=== PATIENT | female | born 1940 | race Caucasian/White ===

== ENCOUNTER 2016-06-16 10:57 | Inpatient (IN) | payer MEDICARE, OTHER ==
[~2016-06-16] VITALS: Ht 175.3 cm; Wt 71.3 kg
[2016-06-16] VITALS (16 sets, daily range): BP systolic 100–133; BP diastolic 54–77; PULSE 60–70; RESP 10–18; O2SAT 98–100
[~2016-06-16 10:57] MED LIST: BUTA1CAP45 PO; Bupivacaine Liposome 1.3% 20 mL Inj NERVEBLOCK ONE; CALC-140 PO; CHOL10008 PO; CeFAZolin Inj 2 GM in IV Premix 1 EACH IV ONE; LEVO150T5 PO; Lactated Ringer's 1,000 ML IV SCH; Vancomycin Inj 1,000 MG in IV Premix 1 EACH IV ONE; flaxseed oil
[2016-06-16] MEDS ORDERED: CeFAZolin Inj 2 gm / 50mL D5W IV ONE (12:07)
[2016-06-16] MEDS ORDERED: Vancomycin 1,000mg/200 mL NS IV ONE (12:07)
[2016-06-16] MEDS ORDERED: Tranexamic Acid 100 mg/mL 10 mL Inj IV ONE (14:20)
[2016-06-16] MEDS ORDERED: Bupivacaine Liposome 1.3% 20 mL Inj ONE (15:50)
[2016-06-16] MEDS ORDERED: 0.9% Sodium Chloride 100 ML ONE (16:00)
[2016-06-16] MEDS ORDERED: Lactated Ringer's 1,000 ML IV ONE ×2 (16:15→18:01)
[2016-06-16] MEDS ORDERED: Tranexamic Acid 100 mg/mL 10 mL Inj TOPICAL ONE (16:35)
[2016-06-16] MEDS ORDERED: Lactated Ringer's 1,000 ML IV SCH (16:54)
[2016-06-16] MEDS ORDERED: Lactated Ringer's 500 ML IV PRN (16:54)
[2016-06-16] MEDS ORDERED: fentaNYL-PF 50 mCg/mL 2 mL Inj IVPUSH PRN (16:55)
[2016-06-16] MEDS ORDERED: Phenylephrine 10,000 mCg/mL Inj IVPUSH PRN (16:55)
[2016-06-16] MEDS ORDERED: MetoCLOpramide 5 mg/mL 2 mL Inj IVPUSH PRN ×2 (16:55→21:45)
[2016-06-16] MEDS ORDERED: HYDROmorphone 1 mg/mL Inj IVPUSH PRN (16:55)
[2016-06-16] MEDS ORDERED: Ondansetron 2 mg/mL 2 mL Inj IVPUSH PRN ×2 (16:55→21:45)
[2016-06-16] MEDS ORDERED: Dexamethasone 4 mg/mL Inj IVPUSH PRN (16:55)
[2016-06-16] MEDS ORDERED: EPHEDrine Sulfate 50 mg/mL Inj IVPUSH PRN (16:55)
[2016-06-16] MEDS ORDERED: Gentamicin 40 mg/mL 2 mL Inj IRRIGATION ONE (16:55)
--- NOTE | 2016-06-16 16:55 | PCM.HPANE ---
Patient Data Surgeon Admitting Provider: Attending Provider:Alber Hernandez MD Primary Care Physician:Gennaro Viveros MD Other Provider:Danielle Simsingham Anesthesia Reason for Visit Left Knee Arthritis Ht/WT & BMI Height (Feet): 5 Height (Inches): 9 Weight (Kilograms): 68.31 Body Mass Index 22.00 Allergies Coded Allergies: No Known Allergies (Unverified , 06/14/16) Past Anesthesia History Anesthesia History: Denies:: Abnormal Airway, Anesthesia Reactions, Difficult Intubation, Fam Anesthesia Reaction (father "made him kind of crazy") Diabetes History Hx Diabetes?: No MRSA MRSA: No Medications Hypertension Medication: No Home Meds Incl Beta Patel: No Reported Medications Cholecalciferol (Vitamin D3) (Vitamin D3)1,000 Unit Tab.chew1,000 Unit PO DAILY 06/14/16 [flaxseed oil] No Conflict CheckUnknown Dose DAILY 06/14/16 Levothyroxine 150 Mcg [id number] Mcg PO DAILY Ref 0 06/14/16 Butalbital/Acetamin/Caff 50-325-40 mg (Esgic 50-325-40 mg)1 Each Capsule1-2 Capsule PO Q4H PRN migraines Ref 0 not to exceed 6caps/24hrs 06/14/16 Calcium Carbonate/Vitamin D3 (Calcium + Vitamin D Tablet)1 Each Tablet1 Each PO DAILY 06/14/16 History HEENT History: Denies:: Abnormal Airway Cataracts Difficult Intubation Dysphagia Glaucoma Hearing Problem Sinus Problem TMJ Cardiovascular History: Denies:: AICD Abdominal Aortic Aneurism Atrial Fibrillation Cardiac Surgery Chest Pain Congestive Heart Failure Coronary Artery Disease Edema Heart Murmur Hypertension Irregular Heartbeat Pacemaker Peripheral Vascular Rheumatic Fever Thrombophlebitis Valvular Heart Disease Hx of Respiratory Problem?: No Respiratory History: Denies:: Asthma COPD Emphysema Oxygen Administration Pneumonia Tuberculosis Use of C-PAP Machine Use of Inhalers / NEBS Hx Neurologic Problems?: Yes Neurological History: Positive for:: Headaches Denies:: CVA Multiple Sclerosis Parkinson's Disease Seizures TIA Gastrointestinal History: Denies:: Cirrhosis Gall Bladder Disease Gastroesphageal Reflux Heartburn Hiatal Hernia Liver Disease Hx of Problems?: No Genitourinary History: Denies:: Kidney Stones Urinary Tract Infection Female Hx: Denies:: Currently (hysterectomy) Problems with Breasts? Skin History: Denies:: History Skin Disorders? Pressure Ulcers Hx Musculoskeletal Problems?: Yes Musculoskeletal History: Positive for:: Degenerative Joint Musculoskeletal Trauma (left knee current admission problem) Osteoarthritis Denies:: Back Injury Fibromyalgia Joint Replacement Myasthenia Gravis Hx of Psycho/Social Problems?: No Psycho Social History: Denies:: Anxiety Hx Depression Hx Surgeries?: Yes (hysterectomy) Hx Any Other Health Problems?: Yes Other History: Positive for:: Thyroid Disease Denies:: Cancer History Blood Transfusions: Positive for:: Accept Blood Products? Denies:: Blood Transfusions Hx Diabetes: No Hx Alcohol Use: NoHx Substance Use: NoHave You Smoked inLast 12 mo: No Stop/Bang S-Snoring: Do You Snore Loudly: No T-Tired: feel tired, fatigued: Yes O-Obsered: Observed not breath: No P-Blood Pressure: treated: No B- Body Mass Index > 35 kg/m2: No A- Age over 50: Yes N- Neck Large Circumference: No G- Gender Male: No NADINE Total Score: 2 Risk Assessment Category Category 1A: Patient has history of documented sleep apnea, and HAS NOT received any narcotic, sedative or anesthesia administration during this stay. Category 1B: Patient has history of documented sleep apnea, and HAS received any narcotic , sedative or anesthesia administration during this stay Category 2: Patient has SUSPECTED Obstructive Sleep Apnea, and HAS received any narcotic , sedative or anesthesia administration during this stay. Category 3: Patient has SUSPECTED Obstructive Sleep Apnea and HAS NOT received narcotic, sedative or anesthesia administration during this stay. Category 4: Outpatient in Procedural Areas with known sleep apnea or who screen positive for High Risk via the STOP/BANG questionnaire. Exam Exam General Appearance: Alert, Oriented X3, Cooperative, No Acute Distress HEENT/AIRWAY: MP 2 Lungs: Clear to Auscultation Heart: Exam Unremarkable Plan Impression Patient chart reviewed, patient interviewed and anesthestic plan with risks, benefits, and alternatives discussed, and informed consent obtained. ASA Physical Status: ASA2 Mod Systemic Disease Anesthetic Plan: Regional Block (adductor canal), SAB Bene/Risks/Altern/Consents: Yes HP Complete Prior to Induction: Yes Salvador Graham MD Jun 16, 2016 08:59
[2016-06-16] MEDS ORDERED: Bupivacaine-MPF 0.25%/EPI 30 mL Inj INFILTRATE ONE (18:08)
[2016-06-16] MEDS ORDERED: Bupivacaine Liposome 1.3% 20 mL Inj INFILTRATE ONE (18:08)
--- NOTE | 2016-06-16 18:43 | PCM.ANEP1 ---
Post Anesthesia Phase 1 PACU Phase 1 Assessment Vital Signs Vital Signs Date Time Temp Pulse Resp B/P Pulse Ox O2 Delivery O2 Flow Rate FiO2 06/16/16 11:40 36.5 70 18 123/65 98 Room Air Anesthetic Administered: Regional Block, SAB Level of Alertness: Awake, talking HOLLY's with Equal Strength: No (spinal) Pain: No Nausea or Vomiting: No (d) Oxygen Delivery: Room Air Lungs: Clear to Auscultation Salvador Graham MD Jun 16, 2016 18:43
--- NOTE | 2016-06-16 18:50 | PCM.ANEP2 ---
Post Anesthesia Evaluation ASA/CMS Post Anesthesia VS in Patient's Normal Range?: Yes Resp Stable; Airway Patent?: Yes CV Function & Hydration Stable: Yes Mental Status Recovered?: Yes Pain control Satisfactory?: Yes N/V Control Satisfactory?: Yes Salvador Graham MD Jun 16, 2016 18:50
[2016-06-16 19:04] LABS: APPEARANCE,URINE HAZY (CLEAR,HAZY); COLOR,URINE YELLOW (YELLOW); OCCULT BLOOD,URINE TRACE (NEGATIVE); PH,URINE 5.5 (5.0-8.0); UROBILINOGEN,URINE NORMAL (NORMAL)
--- NOTE | 2016-06-16 19:52 | DRSVH ---
PROCEDURE: X-RAY LEFT KNEE, ONE OR TWO VIEWS ([id number]) INDICATIONS: POST TOTAL KNEE TECHNIQUE: 2 view(s) of the knee acquired. COMPARISON: [facility], CR, XR KNEE BILATERAL STANDING UP, 05/11/2016, 14:47. FINDINGS: Bones: Patient is status post knee joint arthroplasty. Hardware components are in expected position s. Visualized bony structures are intact. Soft tissues: Overlying postoperative changes are noted. IMPRESSION: Expected postsurgical change for total left knee arthroplasty. Dictated by: Susana Lee MD, PhD on 06/16/2016 at 19:50 Approved by: Susana Lee MD, PhD on 06/16/2016 at 19:50
[2016-06-16] MEDS ORDERED: Bupiv-Spinal 0.75%/Dex 8.25% 2 mL Inj ONE (19:58)
[2016-06-16] MEDS ORDERED: Propofol 10,000 mCg/mL 20 mL Inj ONE (19:58)
[2016-06-16] MEDS ORDERED: fentaNYL-PF 50 mCg/mL 2 mL Inj ONE (19:58)
[2016-06-16] MEDS ORDERED: Phenylephrine/NS 100 mCg/mL 10 mL Syringe IVPUSH ONE (19:58)
[2016-06-16] MEDS ORDERED: Butalbital-Acet-Caffeine Tablet PO PRN (21:10)
[2016-06-16] MEDS ORDERED: diphenhydrAMINE 25 mg Capsule PO PRN (21:45)
[2016-06-16] MEDS ORDERED: Magnesium Hydroxide 10 mL Oral Concentration PO PRN (21:45)
[2016-06-16] MEDS ORDERED: Alum-Mag Hydrox-Simeth 30 mL Suspension PO PRN (22:05)
[2016-06-16] MEDS ORDERED: LORazepam 0.5 mg Tablet PO PRN (22:05)
[2016-06-16] MEDS ORDERED: hydrOXYzine Inj 25 MG/1 mL SDV IM PRN (22:10)
[2016-06-16] MEDS: HYDROcodone-APAP 5-325 mg Tablet PO PRN (22:16)
[2016-06-16] MEDS: CeFAZolin Inj 2 GM in Dextrose 5% 50 ML IV SCH (22:16)
[2016-06-16] MEDS: Lactated Ringer's 1,000 ML IV SCH (22:17)
[2016-06-16] MEDS ORDERED: Vancomycin Inj 1,000 MG in IV Premix 1 EACH IV ONE (22:30)
[2016-06-17 00:07] VITALS: BP 116/63; PULSE 58; RESP 16; O2SAT 98
[2016-06-17] MEDS: HYDROcodone-APAP 5-325 mg Tablet PO PRN ×4 (01:14→14:56)
--- NOTE | 2016-06-17 04:14 | OP ---
[address] [address] OPERATIVE REPORT PATIENT: INDY WANG : 1940 MR#: [id number] ADMIT: 06/16/2016 JOB ID: [id number] DATE OF SURGERY: 06/16/2016 PREOPERATIVE DIAGNOSIS(ES): Severe arthritis, left knee. POSTOPERATIVE DIAGNOSIS(ES): Severe arthritis, left knee. PROCEDURE: Total knee arthroplasty. SURGEON: Alber Hernandez MD. TIRE BAGGER: Penelope Burkett PA-C. Quilt Maker required due to the major complexity of operation. PROCEDURE: Left total knee replacement. INDICATIONS: This woman has had severe progressive osteoarthritis symptoms uncontrolled by conservative treatment techniques. She elects to proceed with a total knee arthroplasty. She understands and accepts the potential for risks and complications, which include, but are not limited to, infection, thromboembolic, neurovascular events, as well as potential for implant failure. Understanding these, she wishes to proceed. PROCEDURE: The patient was prepped and draped in usual sterile fashion. An anteromedial approach made. Patella subluxed laterally, cut transversely, sized to a 35. Patellar protection plate applied. Drill hole placed in the distal femur. A 5 degree valgus distal femoral cut was made. Sizing apparatus used. The femur was sized to a 9 chamfer cutting block, fixed in appropriate position and rotation. Drill holes and chamfer cuts were made. After trial reductions, later decision was made to reduce the size to an 8. An 8 chamfer cutting block was placed with a 1 mm down position taking additional millimeter off anteriorly and 1 posteriorly. Improved fit was obtained with this. The extramedullary guide was utilized to make a tibial cut. Standard cut was made. All bone fragments removed. All meniscal tissue and osteophytes were removed. This was sized to an E tibial component, fixed in appropriate position, rotation. Central drill, peg hole drilled, followed by punch with pressurized lavage, followed by pressurized cementation of the components. Trial reduction performed and excellent soft tissue tracking, full flexion with passive drop in full extension had been noted. Excess cement was removed during the curing process. Final construct assembled. Tourniquet was let down. Hemostasis achieved. Closed with a deep Hemovac drain with #2 Quill deep, 2-0 Vicryl, 3-0, and a 4-0 intracuticular stitch. Wounds had been lavaged with dilute Betadine solution prior to closure. Patient tolerated procedure well. There were no complications. She was taken to the recovery room in stable condition . Standard postoperative plan recommended.
[2016-06-17 05:00] VITALS: BP 103/64; PULSE 62; RESP 18; O2SAT 95
[2016-06-17 05:09] LABS: BASOPHILS % (AUTO) 0.1 % (0-3); EOSINOPHILS % (AUTO) 0 % (0-5); MONOCYTES % (AUTO) 8.1 % (4-12); Mean Corpuscular Hemoglobin 29.5 pg (27.0-35.0); Mean Corpuscular Volume 90.4 fL (81-100); NEUTROPHILS % (AUTO) 86.5 % (40-74); Platelet Count 265 bil/L (150-400)
--- NOTE | 2016-06-17 06:44 | PCM.PNORTH ---
Subjective Date of Service: Jun 17, 2016 Visit Information: Reason for Visit Left Knee Arthritis Surgery/Surgery Date Post-Op Day # Date of Admission: Jun 16, 2016 at 19:57 Hospital Day # Subjective Found patient awake and alert sitting up in bed. No complaints of pain at this time. Discussed discharge on postop day #3 and occurs participation with formal physical therapy. Answered questions for patient. On my arrival into the room I was informed by nursing that patient's Hemovac drain had become at the canister and I advised nurse to discontinue drain at this time secondary to breached system. Discussed icing and elevation with patient and encourage patient to keep the knee extended and to remove pillow from behind knee. Also advised patient she may vary her position as comfort allows precaution regarding maintaining a bent knee for extended periods of time. Postop General: No Complaints, No Shortness of Breath, No Chest Pain Pain Management: PO Objective Exam Objective Alert and oriented 3 and pleasant. Intraoperative dressings clean dry and intact. Calf and thigh are soft and nontender. Toe wiggle and sensation intact to left lower extremity distally. Hemovac drain in place. Hemovac drain became disconnected and system was breech just prior to my arrival. I asked nursing to remove the drain and place pressure dressing. Bassett in place and working and will be removed this morning. Vital Signs and I/O Vital Sign - Last Date Time Temp Pulse Resp B/P Pulse Ox O2 Delivery O2 Flow Rate FiO2 06/17/16 05:00 36.7 62 18 103/64 95 Room Air Intake and Output 06/16/16 06/16/16 06/17/16 Cumulative From/Thru 15:00 23:00 07:00 06/14/16 17:02 - 06/17/16 06:05 Intake Total 1550 ml 3200 ml 4750 ml Output Total 400 ml 5000 ml 5400 ml Balance 1150 ml -1800 ml -650 ml Intake Oral 3200 ml 3200 ml IV Total 1550 ml 1550 ml Output Urine Total 350 ml 5000 ml 5350 ml Estimated Blood Loss 50 ml 50 ml # Bowel Movements 0 0 Lab & Micro Results Laboratory Tests Test 06/16/16 18:36 06/17/16 04:50 Urine Color Yellow (YELLOW) Urine Appearance Hazy (CLEAR,HAZY) Urine pH 5.5 (5.0-8.0) Urine Specific [place] 1.030 (1.003-1.035) Urine Protein Negativemg/dL (NEG,TRACE) Urine Glucose (UA) Negativemg/dL (NEGATIVE) Urine Ketones 40mg/dL (NEGATIVE) Urine Occult Blood Trace (NEGATIVE) Urine Nitrite Negative (NEGATIVE) Urine Bilirubin Negative (NEGATIVE) Urine Urobilinogen Normalmg/dL (NORMAL) Urine Leukocyte Esterase Negative (NEGATIVE) Urine RBC 0-2/hpf (0-2) Urine WBC 0-5/hpf (0-5) Urine Epithelial Cells Few/hpf (NONE-MOD) Urine Crystals None seen (NONE SEEN) Urine Bacteria Few/hpf (NONE-FEW) Urine Hyaline Casts None/lpf (NONE) Urine Granular Casts None seen (NONE SEEN) Urine Waxy Casts None seen (NONE SEEN) Urine Red Blood Cell Casts None seen (NONE SEEN) Urine White Blood Cell Casts None seen (NONE SEEN) Urine Mucus Present (None Seen) Urine Trichomonas None seen (NONE SEEN) Urine Yeast None (NONE SEEN) Urinalysis Comment None Urine Culture Reflexed Not indicated White Blood Count 11.1th/mm3 (3.8-10.1) Red Blood Count 4.58mil/mm3 (3.90-5.20) Hemoglobin 13.5g/dL (12.0-15.6) Hematocrit 41.4% (35.0-46.0) Mean Corpuscular Volume 90.4fL (81-100) Mean Corpuscular Hemoglobin 29.5pg (27.0-35.0) Mean Corpuscular Hemoglobin Concent 32.6% (32.0-37.0) Red Cell Distribution Width 12.8% (12.3-15.4) Platelet Count 265bil/L (150-400) Neutrophils (%) (Auto) 86.5% (40-74) Lymphocytes (%) (Auto) 5.1% (14-46) Monocytes (%) (Auto) 8.1% (4-12) Eosinophils (%) (Auto) 0% (0-5) Basophils (%) (Auto) 0.1% (0-3) Result Diagram: 06/17/16 0450 General Appearance: Alert, Oriented X3, Cooperative, No Acute Distress Extremities: No Compartment Syndrom Noted, Thigh & Calf Soft/Nontender Postop Sensory Motor: Distal Motor Intact, Movement in Toes, Distal Sensation Intact SURGICAL WOUND : Drain Location Body Site: Knee Wound Drainage Type: Hemovac Activity: Activity per PT, Ambulate with PT (weightbearing as tolerated on the left lower extremity using front wheeled walker) Catheters: Urethral 2 Way Bassett (Bassett in place and working and will be removed this morning at 10:00.) Assessment & Plan Plan Postop day #1 from left total knee arthroplasty performed on 06/16/[address] Alber Hernandez. Weightbearing as tolerated on the left lower extremity using front wheeled walker. Continue formal physical therapy for mobility, gait and safety. Continue by mouth pain medication in the form of Percocet 5/325 and Vistaril as needed. Continue ASA 81 mg EC by mouth twice a day 6 weeks postop for DVT prophylaxis per conversation with Dr. Hernandez. Interoperative dressing is clean dry and intact and will be changed postop dressing on postop day #2 DC Hemovac drain immediately this morning secondary to drain this disconnected and system breeched. Bassett catheter in place and working. This will be discontinued at 10 AM this morning. Anticipate discharge to home on a before postop day #3. VTE Prophylaxis: Other (ASA 81 mg EC by mouth twice a day 6 weeks postop for DVT prophylaxis.) Gustavo Gonzalez PA-C Jun 17, 2016 06:44
[2016-06-17] MEDS: CeFAZolin Inj 2 GM in Dextrose 5% 50 ML IV SCH (06:46)
[2016-06-17 10:59] VITALS: BP 90/50; PULSE 70; RESP 18; O2SAT 94
[2016-06-17] MEDS: Lactated Ringer's 1,000 ML IV SCH (13:50)
[2016-06-17 14:20] VITALS: BP 112/64; PULSE 68; RESP 18; O2SAT 98
[2016-06-17] MEDS: hydrOXYzine Pamoate 25 mg Capsule PO PRN (14:56)
[2016-06-17] MEDS: oxyCODONE-Acetamin 5-325 mg Tablet PO PRN ×2 (18:04→22:54)
[2016-06-17 18:24] VITALS: BP 107/59; PULSE 70; RESP 18; O2SAT 97
[2016-06-17 19:24] VITALS: BP 95/59; PULSE 67; RESP 16; O2SAT 95
[2016-06-18] MEDS: oxyCODONE-Acetamin 5-325 mg Tablet PO PRN ×2 (02:03→10:46)
[2016-06-18] MEDS: hydrOXYzine Pamoate 25 mg Capsule PO PRN (05:23)
[2016-06-18 05:25] VITALS: BP 105/57; PULSE 65; RESP 16; O2SAT 91
[2016-06-18] MEDS: Lactated Ringer's 1,000 ML IV SCH (06:30)
--- NOTE | 2016-06-18 11:54 | PCM.PNORTH ---
Subjective Date of Service: Jun 18, 2016 Visit Information: Reason for Visit Left Knee Arthritis Surgery/Surgery Date left total knee arthroplasty Post-Op Day # 2 Date of Admission: Jun 16, 2016 at 19:57 Hospital Day # Subjective Patient feels that pain management has been difficult. She does not feel confident about going home today. She feels that she has significant difficulty with getting up to the bathroom. She is performing well with physical therapy and ambulated 150 feet this morning. She has not yet done stairs. Postop General: No Complaints, No Shortness of Breath, No Chest Pain Pain Management: PO Objective Exam Objective Patient is seen sitting up in bed Vital Signs and I/O Vital Sign - Last Date Time Temp Pulse Resp B/P Pulse Ox O2 Delivery O2 Flow Rate FiO2 06/18/16 10:53 Room Air 06/18/16 05:25 36.8 65 16 105/57 91 Intake and Output 06/17/16 06/17/16 06/18/16 Cumulative From/Thru 15:00 23:00 07:00 06/14/16 17:02 - 06/18/16 06:17 Intake Total 1024 ml 300 ml 6709 ml Output Total 2000 ml 500 ml 7905 ml Balance -976 ml -200 ml -1196 ml Intake Oral 360 ml 300 ml 3860 ml IV Total 664 ml 2849 ml Output Urine Total 2000 ml 500 ml 7850 ml Drainage Total 5 ml Estimated Blood Loss 50 ml # Bowel Movements 0 0 0 Result Diagram: 06/17/16 0450 General Appearance: Alert, Oriented X3, Cooperative, No Acute Distress Extremities: Distal Pulses Palpable, No Compartment Syndrom Noted, Thigh & Calf Soft/Nontender, Tenderness/Swelling Noted (at the surgical site, as expected) Postop Sensory Motor: Distal Motor Intact, NVI Distally SURGICAL WOUND : Wound Location/Description Surgical wound is clean dry and intact. Steri-Strips are in place. There is mild serous drainage on the Silverlon dressing. Dressing is removed. The wound is cleansed with hydrogen peroxide and an island dressing is applied. Activity: Activity per PT, Ambulate with PT Catheters: None Assessment & Plan Impression POD#2 left total knee arthroplasty Problems: Plan Weightbearing: Weightbearing as tolerated with walker DVT prophylaxis: aspirin 81 mg twice a day 6 weeks Physical therapy for transfers, progressive ambulation, therapeutic exercise. Patient ambulated 150 feet with PT this morning and minimal assist for BR She has bedside commode for home and FWW. Therapy will review stairs this afternoon with the patient. Wound care: Dressings changed today by PA Discharge plan: Discharge home today after PT. Start outpatient physical therapy next week Discharge instructions are reviewed with patient Follow-up plan: In 2 weeks at [facility] with PA for wound check and at [address] Hernandez with x-rays Pain Management: Percocet 5/325 mg, oxycodone, Vistaril, morphine VTE Prophylaxis: SCDs, Other (aspirin) [place] PA-C Jun 18, 2016 11:54
--- NOTE | 2016-06-18 12:27 | PCM.DIORTH ---
Ortho Discharge Instruction Date of Service: Jun 18, 2016 Dates of Hospitalization Date of Hospital Admission Jun 16, 2016 at 19:57 Providers Admitting Physician: Alber Hernandez MD Primary Care Physician: Gennaro Viveros MD Attending Physician: Alber Hernandez MD Diet Discharge Diet: No restrictions Activity Discharge Activity-General: Balance rest and activity, Elevate & ice extremity Left Lower Extremity: Weight Bearing as tolerated Range of motion restrictions: Work on bending and straightening the knee every day. It will be sore to bend, but push yourself to bend more every day Discharge Assist Device: Front Wheeled Walker Dressing and Incisional Care Discharge Dressing Care: Keep dressing clean, dry & intact Discharge Hygiene: May shower (see instruactions below), DO NOT soak incision under water, NO bathtub, hot tub or whirlpool Additional Instructions Discharge Instructions Weight bearing as tolerated with walker Increase your walking a little more each day. Get up and move every hour of the day and do some exercise for your knee. On Monday you may shower if there is no drainage present on the bandage. Wound may be uncovered to shower. Let soap and water run over the wound, pat dry and apply a new dressing. Wear thigh high compression stocking on the surgical leg for 3-4 weeks after surgery to help control swelling Start outpatient physical therapy on Monday as scheduled DVT prophylaxis: Aspirin 81 mg twice a day 6 weeks Follow Up Plan Follow Up Plan In 2 weeks at [facility] with KENNEDY for wound check, and at [address] Hernandez with x-ray Call your provider for: Fever, Chills, Shortness of breath, Vomitting, Drainage at incision (excessive), Wound redness (spreading around the wound) Penelope Burkett PA-C Jun 18, 2016 12:27
[2016-06-18] MEDS ORDERED: OXYC5TAB72 PO (12:34)
[2016-06-18] MEDS ORDERED: ASPI-973 PO (12:34)
[2016-06-18] MEDS ORDERED: DOCU-41 PO (12:34)
[2016-06-18] MEDS ORDERED: HYDR-3797 PO (12:34)
--- NOTE | 2016-07-08 17:23 | PCM.DC.ORT ---
Discharge Summary Date of Service: Jul 08, 2016 Date of Hospital Admission: Jun 16, 2016 at 19:57 Date of Surgery: Jun 17, 2016 Date of Discharge: Jun 19, 2016 Reason for Hospitalization: Left Knee arthritis Procedures Performed: Left Total knee arthroplasty Hospital Course: The patient was admitted to the hospital on 06/17/2016 and underwent the above procedure. Antibiotic prophylaxis consisting of Ancef and vancomycin. The surgeon was Dr. Hernandez. Patient tolerated the procedure well and was transferred to recovery room in stable condition. Patient had physical therapy to work on ambulation and transfers. Weightbearing as tolerated with walker. Pain was managed with Dilaudid, Percocet, Vistaril, Toradol. DVT prophylaxis: Aspirin 81 mg twice a day Patient progressed well with physical therapy, ambulated 150' and did stairs; and on POD-2 was discharged home. Follow-up: at [facility] 2 weeks postop for wound check and at [address] Hernandez with x-ray Diagnosis at Time of Discharge Status post Left TKA Problems: Disposition: Discharged home in stable condition Additional Information Follow-up plan: In 2 weeks at [facility] with PA for wound check and at [address] Hernandez with x-rays Discharge Instructions: Weight bearing as tolerated with walker Increase your walking a little more each day. Get up and move every hour of the day and do some exercise for your knee. On Monday you may shower if there is no drainage present on the bandage. Wound may be uncovered to shower. Let soap and water run over the wound, pat dry and apply a new dressing. Wear thigh high compression stocking on the surgical leg for 3-4 weeks after surgery to help control swelling Start outpatient physical therapy on Monday as scheduled ([flaxseed oil]) Unknown Dose DAILY Aspirin (Aspirin) 81 Mg Tablet 81 MG PO BID Butalbital/Acetamin/Caff 50-325-40 mg (Esgic 50-325-40 mg) 1 Each Capsule 1-2 CAPSULE PO Q4H PRN PRN migraines not to exceed 6caps/24hrs Calcium Carbonate/Vitamin D3 (Calcium + Vitamin D Tablet) 1 Each Tablet 1 EACH PO DAILY Cholecalciferol (Vitamin D3) (Vitamin D3) 1,000 Unit Tab.chew 1,000 UNIT PO DAILY Docusate Sodium (Colace) 100 Mg Capsule 100 MG PO BID Hydroxyzine Pamoate (HydrOXYzine Pamoate) 25 Mg Capsule 25 MG PO Q6H PRN PRN For Spasm and/or Restlessness Levothyroxine (Levothyroxine) 150 Mcg Tablet 150 MCG PO DAILY oxyCODONE (oxyCODONE) 5 Mg Tablet 10-15 MG PO Q4H PRN PRN For Moderate Pain Penelope Burkett PA-C Jul 08, 2016 17:23
== END 2016-06-18 17:30 | disposition home or self-care (01) | DRG 470 ==
LOC: SAS 10:57 → OSC 19:57
PROVIDERS: ADMIT Orthopaedic Surgery; ATTEND Orthopaedic Surgery
PROC: 0SRD0J9 Replacement of Left Knee Joint with Synthetic Substitute, Cemented, Open Approach (ICD-10-PCS; principal; 2016-06-16 12:30)
DX: M17.12 Unilateral primary osteoarthritis, left knee (principal); E03.9 Hypothyroidism, unspecified